=== PATIENT | male | born 1980 | race African-American/Black ===

== ENCOUNTER 2018-12-21 01:33 | Emergency (ER) | payer SELFPAY ==
[~2018-12-21] VITALS: Ht 193 cm; Wt 147.0 kg
[2018-12-21] MEDS ORDERED: SODIUM CHLORIDE 0.9% 1,000 ML IV ONE (04:16)
[2018-12-21] MEDS ORDERED: ASPIRIN 325MG EC TABLET PO ONE (04:30)
[2018-12-21] MEDS ORDERED: VISCOUS LIDOCAINE 2% 15 ML UDC PO STA (05:00)
[2018-12-21] MEDS ORDERED: MAGNESIUM/ALUMINUM HYDROXIDE/SIMETHICONE 30ML UDC PO STA (05:00)
[2018-12-21 05:13] LABS: BASOPHILS % 0.6 % (0.0-2.0); HEMATOCRIT. 43.1 % (42.0-52.0); HEMOGLOBIN. 14.3 g/dL (14.0-18.0); LYMPHOCYTES % 20.9 % (20.0-50.0); MEAN CORPUSCULAR HEMOGLOBIN 30.2 pg (28.0-32.0); MEAN CORPUSCULAR VOLUME 91.3 fL (80.0-94.0); MONOCYTES % 9.8 % (2.0-8.0); NEUTROPHILS % 65.7 % (40.0-76.0); PLATELET 296 x1000/uL (130-400); RED BLOOD CELL COUNT 4.72 mill/uL (4.7-6.1); RED CELL DISTRIBUTION WIDTH 14.2 % (11.6-14.6)
[2018-12-21 05:19] LABS: CHLORIDE 106 mEq/L (98-107)
[2018-12-21 06:50] VITALS: BP 119/79
== END 2018-12-21 06:55 | disposition home or self-care (01) ==
LOC: ER 01:33
DX: J06.9 Acute upper respiratory infection, unspecified (principal); J45.909 Unspecified asthma, uncomplicated; Z88.2 Allergy status to sulfonamides
CPT/HCPCS: 36415; 71045; 80053; 83880; 84484; 85025; 87070; 87430; 87804; 93005; 99284; J7030

== ENCOUNTER 2020-06-08 04:07 | Emergency (ER) | payer MEDICAID ==
[~2020-06-08] VITALS: Ht 195.6 cm; Wt 161.0 kg
[2020-06-08] MEDS ORDERED: ONDANSETRON HCL 4MG/2ML INJ IV STA (04:46)
[2020-06-08] MEDS ORDERED: SODIUM CHLORIDE 0.9% 1,000 ML IV ONE (04:46)
[2020-06-08] MEDS ORDERED: MORPHINE SULFATE 4 MG/ML CPJ (NOT FOR IM USE) IV STA (04:46)
[2020-06-08 05:37] LABS: BASOPHILS % 0.9 % (0.0-2.0); EOSINOPHILS % 2.6 % (0.0-5.0); HEMATOCRIT. 44.3 % (42.0-52.0); HEMOGLOBIN. 14.7 g/dL (14.0-18.0); MEAN CORPUSCULAR HEMOGLOBIN 29.6 pg (28.0-32.0); MEAN CORPUSCULAR VOLUME 89.4 fL (80.0-94.0); MEAN PLATELET VOLUME 7.7 fl (7.4-10.4); MONOCYTES % 6.6 % (2.0-8.0); NEUTROPHILS % 66.9 % (40.0-76.0); PLATELET 311 x1000/uL (130-400); RED BLOOD CELL COUNT 4.96 mill/uL (4.7-6.1); RED CELL DISTRIBUTION WIDTH 14.4 % (11.6-14.6)
[2020-06-08 05:41] LABS: CHLORIDE 106 mEq/L (98-107)
[2020-06-08 06:58] LABS: CLARITY URINE CLEAR (CLEAR); COLOR URINE YELLOW (YELLOW); KETONES URINE NEGATIVE (NEGATIVE); LEUKOCYTE ESTERASE URINE NEGATIVE (NEGATIVE); NITRITE URINE NEGATIVE (NEGATIVE); OCCULT BLOOD URINE NEGATIVE (NEGATIVE); PROTEIN URINE NEGATIVE (NEGATIVE); SPECIFIC GRAVITY URINE 1.026 (1.005-1.030)
[2020-06-08] MEDS ORDERED: MORPHINE SULFATE 10 MG/ML CPJ IV NR (08:13)
[2020-06-08] MEDS ORDERED: MORPHINE SULFATE 10 MG/ML CPJ IV ONE (10:45)
[2020-06-08] MEDS ORDERED: KETOROLAC 30MG/ML VIAL IV ONE (10:45)
[2020-06-08 13:36] VITALS: BP 138/88
== END 2020-06-08 14:18 | disposition home or self-care (01) ==
LOC: ER 04:07
DX: M48.061 Spinal stenosis, lumbar region without neurogenic claudication (principal); M54.32 Sciatica, left side; J45.909 Unspecified asthma, uncomplicated; Z88.2 Allergy status to sulfonamides
CPT/HCPCS: 36415; 72131; 80053; 81003; 85025; 93005; 96361; 96374; 96375; 96376; 99285; J1885; J2270; J2405; J7030